=== PATIENT | male | born 1980 | race Caucasian/White ===

== ENCOUNTER 2022-03-27 09:43 | Emergency (ER) | payer MEDICAID, OTHER | END 2022-03-27 10:50 | disposition home or self-care (01) | LOC: KA.ED 09:43 | DX: S60.222A Contusion of left hand, initial encounter (principal); F17.210 Nicotine dependence, cigarettes, uncomplicated; W27.8XXA Contact with other nonpowered hand tool, initial encounter; Y99.0 Civilian activity done for income or pay | CPT/HCPCS: 73130-LT; 99283 ==

== ENCOUNTER 2024-08-04 16:34 | Emergency (ER) | payer OTHER ==
[2024-08-04] MEDS: traMADol 50 MG Tab PO ONE (18:01)
== END 2024-08-04 18:05 | disposition home or self-care (01) ==
LOC: KA.ED 16:34
DX: S46.011A Strain of muscle(s) and tendon(s) of the rotator cuff of right shoulder, initial encounter (principal); X50.9XXA Other and unspecified overexertion or strenuous movements or postures, initial encounter
CPT/HCPCS: 99283; A9270

== ENCOUNTER 2024-11-16 10:06 | Emergency (ER) | payer OTHER | END 2024-11-16 11:50 | disposition home or self-care (01) | LOC: KA.ED 10:06 | DX: S13.4XXA Sprain of ligaments of cervical spine, initial encounter (principal); V53.9XXA Unspecified occupant of pick-up truck or van injured in collision with car, pick-up truck or van in traffic accident, initial encounter | CPT/HCPCS: 72125; 73030-LT; 73030-RT; 99284 ==

== ENCOUNTER 2024-11-22 17:41 | Emergency (ER) | payer OTHER ==
[2024-11-22 18:59] LABS: INFLUENZA A NAA NEGATIVE (NEGATIVE); INFLUENZA B NAA NEGATIVE (NEGATIVE); RESPIRATORY SYNCYTIAL VIR NAA NEGATIVE (NEGATIVE)
[2024-11-22 19:00] LABS: CORONAVIRUS COVID-19 NAA NEGATIVE (NEGATIVE)
== END 2024-11-22 19:15 | disposition home or self-care (01) ==
LOC: KA.ED 17:41
DX: J20.9 Acute bronchitis, unspecified (principal); Z79.899 Other long term (current) drug therapy
CPT/HCPCS: 71046; 87637; 94640; 99283; 99285; A9270-GY; J7512